=== PATIENT | male | born 1970 | race African-American/Black ===

== ENCOUNTER 2023-02-21 11:22 | Emergency (ER) | payer MEDICARE, MEDICAID ==
[~2023-02-21] VITALS: Ht 167.6 cm; Wt 58.0 kg
[~2023-02-21 11:22] MED LIST: ACET-2084
[2023-02-21 11:29] VITALS: O2SAT 100
[2023-02-21] MEDS ORDERED: ACETAMINOPHEN 160MG/5ML UDC PO ONE (12:30)
[2023-02-21 13:14] LABS: DIFFERENTIAL COMMENT 1; HEMATOCRIT. 46.3 % (42.0-52.0); HEMOGLOBIN. 15.3 g/dL (14.0-18.0); MEAN CORPUSCULAR HEMOGLOBIN 31.2 pg (28.0-32.0); MEAN CORPUSCULAR VOLUME 94.8 fL (80.0-94.0); MEAN PLATELET VOLUME 10.4 fl (7.4-10.4); PLATELET 106 x1000/uL (130-400); RED BLOOD CELL COUNT 4.89 mill/uL (4.7-6.1); WHITE BLOOD COUNT 2.4 x1000/uL (4.5-11.0)
[2023-02-21 13:27] LABS: CARBON DIOXIDE 30 mEq/L (21-32); CHLORIDE 107 mEq/L (98-107); GLUCOSE 83 mg/dL (70-105); POTASSIUM 4.6 mEq/L (3.5-5.1); SODIUM 142 mEq/L (136-145); UREA NITROGEN BLOOD 10 mg/dL (9-23)
[2023-02-21 14:12] LABS: PLATELET ESTIMATE DECREASED
[2023-02-21 15:21] VITALS: BP 128/83; PULSE 58; RESP 18; TEMP 98.7
== END 2023-02-21 15:22 | disposition home or self-care (01) ==
LOC: ER 11:22
DX: R60.9 Edema, unspecified (principal); M79.671 Pain in right foot
CPT/HCPCS: 36415; 71045; 73630; 80048; 85025; 93970; 99284